=== PATIENT | female | born 1965 | race Caucasian/White ===

== ENCOUNTER 2017-02-06 21:46 | Inpatient (IN) | payer BC ==
[~2017-02-06] VITALS: Ht 170.2 cm; Wt 103.1 kg
[~2017-02-06 21:46] MED LIST: ACCUPRIL20 MG PO; ADVIL200 MG PO; ALDACTAZIDE 251 EACH PO; ASPIR 8181 M1 PO; CLEOCIN300 MG PO; EFFEXOR25 MG PO; NORCO 5/3251 TABLET PO; QUINAPRIL HCL20 MG PO; VENLAFAXINE HCL75 M1 PO; VITAMIN D-32000 UNI2 PO
[2017-02-07 13:02] VITALS: BP 131/70
[2017-02-07 18:15] VITALS: BP 137/70
[2017-02-07 19:00] VITALS: BP 132/68
[2017-02-07 19:57] LABS: HEMATOCRIT 38.2 % (36.0-46.0); MCH 29.6 PG (29.0-34.0); MCHC 35.6 G/DL (30.0-36.0); MCV 83.2 FL (83-99); MEAN PLAT.VOLUME 10.5 uM^3 (9.5-12.4); PLATELET COUNT 259 K/uL (156-360); RBC DIS.WIDTH-CV 12.2 % (11.8-14.6); RED BLOOD COUNT 4.59 M/uL (3.80-5.20); WHITE BLOOD COUNT 14.4 K/uL (4.1-10.2)
[2017-02-07 20:21] LABS: ANION GAP 11 MEQ/L (2-14); CHLORIDE 102 MEQ/L (99-109); GFR ESTIMATE (CALCULATED) > 59 mL/min/; GLUCOSE 180 mg/dL (70-99); POTASSIUM 3.5 MEQ/L (3.7-5.4); SAMPLE HEMOLYSIS CHECK 0; SAMPLE ICTERIC CHECK 0; SAMPLE LIPEMIA CHECK 0; SODIUM 139 MEQ/L (136-147); UREA NITROGEN (BUN) 19 mg/dL (9-23)
[2017-02-07 23:15] VITALS: BP 125/65
[2017-02-08 03:23] VITALS: BP 140/75
[2017-02-08 05:44] LABS: MCH 29.1 PG (29.0-34.0); MCHC 34.7 G/DL (30.0-36.0); MCV 83.7 FL (83-99); MEAN PLAT.VOLUME 10.1 uM^3 (9.5-12.4); PLATELET COUNT 267 K/uL (156-360); RBC DIS.WIDTH-CV 12.2 % (11.8-14.6); RBC DIS.WIDTH-SD 37.2 % (39-53); WHITE BLOOD COUNT 12.4 K/uL (4.1-10.2)
[2017-02-08 06:27] LABS: ANION GAP 8 MEQ/L (2-14); CHLORIDE 101 MEQ/L (99-109); GFR ESTIMATE (CALCULATED) > 59 mL/min/; GLUCOSE 148 mg/dL (70-99); SAMPLE HEMOLYSIS CHECK 0; SAMPLE ICTERIC CHECK 0; SAMPLE LIPEMIA CHECK 0; SODIUM 138 MEQ/L (136-147); UREA NITROGEN (BUN) 18 mg/dL (9-23)
[2017-02-08 06:28] LABS: POTASSIUM 4.6 MEQ/L (3.7-5.4)
[2017-02-08 07:21] VITALS: BP 132/63
[2017-02-08 11:33] VITALS: BP 142/72
[2017-02-08 15:04] VITALS: BP 168/79
[2017-02-08 16:04] VITALS: BP 168/79
[2017-02-08 20:00] VITALS: BP 110/56
[2017-02-09 00:11] VITALS: BP 115/56
[2017-02-09 04:17] VITALS: BP 116/58
[2017-02-09 06:22] LABS: HEMATOCRIT 35.2 % (36.0-46.0); MCHC 33.8 G/DL (30.0-36.0); MCV 85.9 FL (83-99); MEAN PLAT.VOLUME 10.4 uM^3 (9.5-12.4); PLATELET COUNT 239 K/uL (156-360); RBC DIS.WIDTH-CV 12.3 % (11.8-14.6); RBC DIS.WIDTH-SD 38.4 % (39-53); WHITE BLOOD COUNT 9.7 K/uL (4.1-10.2)
[2017-02-09 07:09] VITALS: BP 130/61
[2017-02-09 07:14] LABS: ANION GAP 6 MEQ/L (2-14); CHLORIDE 99 MEQ/L (99-109); GFR ESTIMATE (CALCULATED) > 59 mL/min/; POTASSIUM 3.8 MEQ/L (3.7-5.4); SAMPLE HEMOLYSIS CHECK 0; SAMPLE ICTERIC CHECK 0; SAMPLE LIPEMIA CHECK 0; SODIUM 138 MEQ/L (136-147); UREA NITROGEN (BUN) 14 mg/dL (9-23)
[2017-02-09 07:16] LABS: GLUCOSE 98 mg/dL (70-99)
[2017-02-09 09:20] VITALS: BP 130/61
[2017-02-09] MEDS ORDERED: TRAMADOL HCL50 MG PO (09:44)
== END 2017-02-09 11:14 | disposition home or self-care (01) | DRG 743 ==
LOC: 2SOUTH → ENRESERV 21:46 → 2SOUTH 02-07 10:51 → 2EAST 02-07 12:09 → ENRESERV 02-07 14:06 → SDC 02-07 15:23 → EDSTATUS 02-07 15:23 → 2SOUTH 02-07 15:24 → 2EAST 02-07 18:26
PROVIDERS: Obstetrics & Gynecology Gynecologic Oncology
DX: N84.1 Polyp of cervix uteri (principal); D25.2 Subserosal leiomyoma of uterus; N83.202 Unspecified ovarian cyst, left side; L91.0 Hypertrophic scar; I10 Essential (primary) hypertension; F32.9 Major depressive disorder, single episode, unspecified; F41.9 Anxiety disorder, unspecified; E55.9 Vitamin D deficiency, unspecified; E66.9 Obesity, unspecified; Z68.37 Body mass index [BMI] 37.0-37.9, adult; Z87.891 Personal history of nicotine dependence; Z79.82 Long term (current) use of aspirin; Z88.2 Allergy status to sulfonamides; Z23 Encounter for immunization; Z87.440 Personal history of urinary (tract) infections
CPT/HCPCS: 36415; 80048; 84702; 85027; 86850; 86900; 86901; 86920; 88304; 88307; 90686; 94799; J0330; J0690; J1100; J1170; J1650; J1885; J1940; J2405; J2710; J2765; J3010; Q0175

== ENCOUNTER 2017-02-14 17:47 | Emergency (ER) | payer BC ==
[~2017-02-14] VITALS: Ht 172.7 cm; Wt 102.0 kg
[~2017-02-14 17:47] MED LIST changes: +TRAMADOL HCL50 MG PO
[2017-02-14 18:33] LABS: BASOPHIL COUNT 0.1 K/uL (0-0.1); EOSINOPHIL (%) 3.6 % (0-5); EOSINOPHIL COUNT 0.4 K/uL (0-0.3); IMMATURE GRANULOCYTE (%) 2.3 % (0.0-0.7); IMMATURE GRANULOCYTE COUNT 0.2 K/uL; INSTRUMENT ABS NEUTROPHIL CT 6.1 K/uL; LYMPHOCYTE COUNT 2.2 K/uL (1.0-2.8); MCH 28.9 PG (29.0-34.0); MCHC 34.9 G/DL (30.0-36.0); MEAN PLAT.VOLUME 10.3 uM^3 (9.5-12.4); MONOCYTE COUNT 0.8 K/uL (0-0.8); NEUTROPHIL (%) 62.5 % (45-76); NEUTROPHIL COUNT 6.1 K/uL (1.8-6.4); RBC DIS.WIDTH-CV 12.2 % (11.8-14.6); RBC DIS.WIDTH-SD 36.3 % (39-53); WHITE BLOOD COUNT 9.7 K/uL (4.1-10.2)
[2017-02-14 18:34] LABS: PLATELET COUNT 422 K/uL (156-360); RED BLOOD COUNT 4.94 M/uL (3.80-5.20)
[2017-02-14 18:38] LABS: INTER. NORMALIZED RATIO 1.2; PROTHROMBIN TIME 13.5 SEC (10.2-12.9)
[2017-02-14 18:41] LABS: PTT 30.3 SEC (25-37)
[2017-02-14 18:45] LABS: CHLORIDE 101 mEq/L (99-109); POTASSIUM 3.8 mEq/L (3.7-5.4); SODIUM 138 mEq/L (136-147)
[2017-02-14 18:46] LABS: GLUCOSE 124 mg/dL (70-99)
[2017-02-14 18:48] LABS: ANION GAP 9 MEQ/L (2-14)
[2017-02-14 18:50] LABS: GFR ESTIMATE (CALCULATED) > 59 mL/min/
[2017-02-14 18:51] LABS: UREA NITROGEN (BUN) 17 mg/dL (9-23)
[2017-02-14 19:07] LABS: ADD MIUA? YES; BILIRUBIN NEGATIVE; BLOOD SMALL; COLOR YELLOW ((YELLOW)); GLUCOSE (STRIP) NEGATIVE; KETONES NEGATIVE; LEUKOCYTES TRACE; NITRITE NEGATIVE; PROTEIN (STRIP) NEGATIVE; SPECIFIC GRAVITY 1.019 (1.000-1.030)
[2017-02-14 19:12] LABS: BACTERIA RARE /HPF; EPITHELIAL CELLS 2+ /HPF; MUCUS TRACE /LPF; RED BLOOD CELLS 0-5 /HPF (0-5); WHITE BLOOD CELLS 0-5 /HPF (0-5)
[2017-02-14 20:32] VITALS: BP 129/99
== END 2017-02-14 20:33 | disposition home or self-care (01) ==
LOC: EME 17:47
PROVIDERS: Physician Assistant
DX: E86.0 Dehydration (principal); R00.2 Palpitations; R05 Cough; R06.02 Shortness of breath; Z98.890 Other specified postprocedural states; Z90.710 Acquired absence of both cervix and uterus; I10 Essential (primary) hypertension; Z87.891 Personal history of nicotine dependence
CPT/HCPCS: 71020; 71275; 80048; 81003; 85025; 85379; 85610; 85730; 99281; 99284; J7030